=== PATIENT | female | born 1955 | race Hispanic/Latino ===

== ENCOUNTER → 2019-05-31 | Outpatient (CLI) | payer MEDICARE, OTHER ==
--- NOTE | 2019-05-31 12:08 | Diagnostic Imaging Report ---
EXAMINATION: ANKLE 3+ VIEWS LEFT, FOOT LEFT COMPLETE INDICATION: Trauma COMPARISON: None FINDINGS: Small ossific crescent at the dorsal aspect of the head of the talus likely represents an avulsion injury. Mild associated soft tissue swelling. Otherwise, no acute fracture or dislocation. Alignment remains anatomic. No substantial ankle joint effusion. Small plantar calcaneal spur and mild Achilles enthesopathy. IMPRESSION: Likely dorsal talar avulsion fracture with mild associated dorsal midfoot soft tissue swelling. Signed by: David Abdullahi MD on 05/31/2019 12:05 PM
== END ==
LOC: RAD 11:03
PROVIDERS: ATTEND Family Medicine
DX: M25.572 Pain in left ankle and joints of left foot (principal)

== ENCOUNTER 2019-09-09 12:44 | Outpatient (RCR) | payer MEDICARE, OTHER | END 2019-09-21 | LOC: PT 12:44 | PROVIDERS: ATTEND Specialist | DX: S99.912A Unspecified injury of left ankle, initial encounter (principal); M25.672 Stiffness of left ankle, not elsewhere classified; M62.81 Muscle weakness (generalized); R26.2 Difficulty in walking, not elsewhere classified ==